=== PATIENT | female | born 1985 | race Caucasian/White ===

== ENCOUNTER 2022-07-18 07:59 | Inpatient (IN) | payer OTHER, SELFPAY ==
--- NOTE | ~2022-07-18 | CT_ITS ---
EXAMINATION: CT abdomen pelvis w con DATE: 07/18/2022 10:26 INDICATION: Epigastric abdominal pain. TECHNIQUE: Computed tomography (CT) of the abdomen and pelvis was performed with 100 mL Omnipaque 350 intravenous contrast. Automated exposure control and iterative reconstruction technique were employe d. The dose-length product was 1117.11 mGy-cm. COMPARISON: None. FINDINGS: The visualized portions of the lung bases demonstrate minimal atelectasis. No pleural effus ion. The heart size is normal. No pericardial effusion. There is diffuse hepatic steatosis. There are changes of cholecystectomy. The spleen is normal. There is fat stranding and fluid around the pancre as, consistent with acute interstitial pancreatitis. The pancreas enhances throughout. The adrenal gl ands and kidneys are normal. There are no dilated loops of bowel. The appendix is normal. There are n o pathologically enlarged lymph nodes. There is physiologic fluid in the pelvis. There is severe lowe r lumbar spondylosis. IMPRESSION: 1. Acute interstitial pancreatitis. 2. Diffuse hepatic steatosis. Reviewed, dictated and finalized at location [facility].
--- NOTE | ~2022-07-18 | MR_ITS ---
MRI of the abdomen: Clinical indication: Pancreatitis. Technique: Coronal SSFSE ARC, WATER:coronal LAVA-FLEX, Coronal 2D FIESTA FatSat, Axial SSFSE BH ARC, Axial 3D DualEcho BH, Axial SSFSE-IR, Axial DWI b=500, Axial 2D FIESTA FatSat, pre and dynamic postco ntrast Axial LAVA ARC, postcontrast Coronal In and Opposed phase LAVA FLEX. Following intravenous adm inistration of 19 cc MultiHance gadolinium, T1-weighted fat-sat imaging was performed in the axial an d coronal planes. Findings: Gallbladder is absent. The common bile duct is normal in course and caliber. No filling def ects are seen within the CBD. No evidence of intrahepatic biliary ductal dilatation. The pancreatic d uct is normal in size. There is diffuse signal drop off in the liver on out of phase images relative to in phase images, con sistent with diffuse fatty infiltration. No focal hepatic mass or intrahepatic biliary dilatation. Th ere is probable minimal edematous change of the pancreas, minimal peripancreatic fluid. Spleen, adren als, kidneys appear normal. The aorta and the paraaortic regions appear normal. No abnormal postcontrast enhancement identified. Impression: Minimal acute pancreatitis. The extent of peripancreatic inflammatory change/fluid is significantly d ecreased since prior CT scan dated 07/18/2022. Diffuse fatty infiltration of the liver. Status post cholecystectomy. No evidence for choledocholithiasis or biliary dilatation. Reviewed, dictated and finalized at [facility]. Impression: Minimal acute pancreatitis. The extent of peripancreatic inflammatory change/fl uid is significantly decreased since prior CT scan dated 07/18/2022. Diffuse fatty infiltration of the liver. Status post cholecystectomy. No evidence for choledocholithiasis or biliary dilatation.
[2022-07-18 08:01] VITALS: BP 156/87; PULSE 87; RESP 18; TEMP 36.3; O2SAT 100
[2022-07-18] MEDS: SODIUM CHLORIDE 0.9% IV 1,000 ML 999 ML IV CONT (08:34)
[2022-07-18] MEDS: ONDANSETRON INJ 4 MG/2 ML VIAL IV PUSH (08:36)
[2022-07-18] MEDS: PANTOPRAZOLE SODIUM IV 40 MG VIAL IV PUSH (08:36)
[2022-07-18] MEDS: MORPHINE SULFATE (*CRX) 4 MG/ML INJ 6 MG IV PUSH (08:39)
--- NOTE | 2022-07-18 08:45 | ED.ABDPAIN ---
HPI - Abdominal Pain General Chief Complaint: Abdominal Pain Stated Complaint: ABD PAIN Time Seen by Provider: 07/18/22 08:09 Source: patient and RN notes reviewed Mode of arrival: ambulatory Limitations: no limitations History of Present Illness HPI narrative: This is a 36 year old female who presents for evaluation of of epigastric abdominal pain. she reports she had pain yesterday but it resolved. Her pain returned this morning at 2 am, and it has been constant. She reports her pain is severe. She has not taken any medication for her pain. She denies nausea, vomiting, diarrhea. She denies history of similar pain. Her gallbladder has already been removed. She rates pain 11/28. Related Data Home Medications Medication Instructions Recorded Confirmed pantoprazole 40 mg tablet,delayed 40 mg PO DAILY 07/18/22 07/18/22 release Allergies Allergy/AdvReac Type Severity Reaction Status Date / Time meperidine [From Demerol] Allergy Rash Verified 07/18/22 08:35 diphenhydramine AdvReac restless Verified 07/18/22 11:00 legs Review of Systems Constitutional: Constitutional: Denies weakness Cardiovascular: Cardiovascular: Denies syncope, Denies rapid heart rate, Denies irregular heart rhythm, Denies leg edema and Denies dyspnea Respiratory: Respiratory: Denies chest congestion, Denies hemoptysis, Denies excessive phlegm production and Denies dyspnea Gastrointestinal: Gastrointestinal: Reports abdominal pain, Denies hematochezia, Denies diarrhea and Denies vomiting Genitourinary: Genitourinary: Denies hematuria and Denies dysuria Musculoskeletal: Musculoskeletal: Denies joint swelling, Denies loss of height and Denies muscle weakness Neurologic: Denies syncope, Denies focal weakness and Denies weakness [facility] Past Medical History Medical History (Updated 07/19/22 @ 14:41 by Crissy Linares MD) Gastroesophageal reflux disease Hepatic steatosis Noted on CT on 07/18/2022. Surgical History Surgical History (Updated 07/18/22 @ 13:48 by Renata Rucker PA-C) History of 3 sections History of cholecystectomy Family History Family History (Updated 07/18/22 @ 20:22 by Renata Rucker PA-C) Father Gallstone pancreatitis Social History Social History (Updated 07/18/22 @ 13:47 by Renata G. Gerling, PA-C) Social History: Surrogate medical decision maker: Eliceo Antony, spouse. Code status: Full code. Smoking status: Current every day smoker Alcohol use details: rarely Substance use: former Substance use type: marijuana, crack/cocaine and other Other substance usage details: Fentanyl. Last use: 2019 Lack of Transportation: No Lack of Food: Never True Current Housing: I Have Housing Concerned About Future Housing: No Difficulty Paying Gas/Electric Bills: No Difficulty Paying for Meds: No Currently Unemployed: No Education: High School Diploma/GED Difficulty w/ Childcare or Family Care: No Additional living arrangements comments: Lives in [place]. Spiritual care concerns: No Exam Const: General: alert; No diaphoretic or ill appearing Nutritional Appearance: obese Orientation/consciousness: patient oriented x3 Other: appears to be in pain HENMT: Head: normal to inspection Eyes: EOM: EOMs intact bilaterally Chest: Chest palpation & inspection: normal inspection of the chest Resp: Effort & Inspection: normal respiratory effort Auscultation: clear to auscultation bilaterally Cardio: Rate: regular rate Rhythm: regular rhythm Heart sounds: no murmurs GI: GI Palp: Yes Soft to palpation, Yes Tenderness to palpation present (GI) (LUQ, epigastric), No Guarding due to palpation present (GI) and No Rigid due to palpation Auscultation: normal bowel sounds Back/Spine/Pelvis: Back: no CVA tenderness Skin: General skin exam: normal color Rashes: no rashes Wounds: no wounds Neuro: General: patient oriented x3, moves all extremities and CN's
[2022-07-18 09:21] LABS: Basophils Absolute Auto 0.1 K/mm3 (0.0-0.1); Basophils Percent Auto 0.5 % (0.2-1.2); Eosinophils Percent Auto 0.2 % (0-4.4); Hemoglobin 14.7 g/dL (12.0-15.0); Immature Granulocyte Absolute 0.03 K/mm3 (0.00-0.031); Immature Granulocyte Percent A 0.3 % (0-0.5); Lymphocytes Absolute Auto 1.07 K/mm3 (0.9-3.2); Lymphocytes Percent Auto 10.2 % (18.3-44.2); Mean Corpuscular Hemoglobin 31.5 pg (26-34); Mean Corpuscular Volume 90.1 fl (80-100); Mean Platelet Volume 10.6 fl (7.4-10.4); Monocytes Absolute Auto 0.5 K/mm3 (0.1-0.6); Monocytes Percent Auto 4.3 % (2.6-8.5); Neutrophils Absolute Auto 8.9 K/mm3 (1.3-6.7); Neutrophils Percent Auto 84.5 % (45.5-73.1); Platelet Count Result 194 k/mm3 (150-375); Red Blood Count 4.66 M/mm3 (4.2-5.4); Red Cell Distribution Width 12.4 % (11.5-14.5); White Blood Count 10.5 K/mm3 (4.5-10.0)
[2022-07-18 09:28] LABS: Alanine Aminotransferase 93 U/L (6-35); Albumin Level 4.7 g/dL (3.5-5.1); Alkaline Phosphatase 57 U/L (38-126); Anion Gap 9 mmol/L (8-16); Aspartate Amino Transferase 62 U/L (14-36); Bilirubin,Total 0.9 mg/dL (0.2-1.3); Blood Urea Nitrogen 16 mg/dL (7-17); Calcium 8.8 mg/dL (8.4-10.2); Carbon Dioxide 27 mmol/L (22-30); Chloride 98 mmol/L (98-107); Estimated CRCL calculation 144 ml/min; Estimated Glomerular Filt Rate > 60; Glucose 204 mg/dL (65-110); Sodium 134 mmol/L (137-145)
[2022-07-18 10:11] LABS: Lipase 4883 U/L (23-300)
[2022-07-18 10:20] LABS: Appearance Urine Cloudy (Clear); Bacteria Urine 4+ /hpf; Bilirubin Urine Negative (Negative); Blood Urine Negative (Negative); Color Urine Dark Yellow (Yellow); Glucose Urine UA 3+ mg/dL (Negative); Ketones Urine 1+ mg/dL (Negative); Leukocyte Esterase Ur 1+ LEU/UL (Negative); Need Manual Microscopic Reviewed; Nitrate Urine Negative (Negative); Non Pathogenic Casts 0-2; Protein Urine 1+ mg/dL (Negative); RBC Urine 0-2 /hpf (0-2); Specific Grav Ur 1.032 (1.001-1.035); Squamous Epithelial Cell Urine Many /hpf (Few); pH Urine 6.5 (5.0-9.0)
[2022-07-18 10:22] LABS: Add Urine Microscopic? YES
[2022-07-18] MEDS: MORPHINE SULFATE (*CRX) 4 MG/ML INJ IV PUSH ×2 (10:59→13:00)
[2022-07-18 11:30] VITALS: BP 153/96
--- NOTE | 2022-07-18 11:53 | PC.NURSE ---
pt keeps taking off BP cuff and O2 probe,
[2022-07-18 12:18] VITALS: BP 167/98; PULSE 82; RESP 20; TEMP 36.8; O2SAT 100; BMI 32.8
[2022-07-18 12:29] VITALS: BMI 32.8
--- NOTE | 2022-07-18 12:32 | PC.NURSE ---
This patient, Britni Antony, was admitted to Medical Room 348-01. Patient/family oriented to hospital policies and general routines including ID bracelet, bed and alarms, visiting hours, pain management, procedures, bathroom and other care routines, personal items, smoking policy, room service/diet, and visiting hours. Information on how to activate the Rapid Response Team has been discussed. Patient/Family are encouraged to report perceived risks to care and to ask questions if they do not understand what they are told or what they should do.
[2022-07-18] MEDS: SODIUM CHLORIDE 0.9% IV 1,000 ML 125 ML IV CONT (12:41)
[2022-07-18 12:52] LABS: Triglycerides 180 mg/dL (<150)
[2022-07-18 13:01] LABS: Hemoglobin A1C 6.2 % (<5.7)
--- NOTE | 2022-07-18 13:45 | PM.IMHP ---
H&P: HPI History of Present Illness Date/Time: 07/18/22 13:45 Chief Complaint: Upper abdominal pain, nausea, and vomiting. Narrative: This is a pleasant 36-year-old female with history of GERD who presented to the emergency department via private vehicle from home for evaluation of upper abdominal pain, nausea, and vomiting. The patient provides the following history. She woke from sleep yesterday morning with some vague discomfort throughout the upper abdomen which seemed to improve throughout the day. This morning she was wakened from sleep at 02:00 from severe pain in the left upper quadrant which she has a difficult time describing. It does radiate somewhat through the back and is associated with nausea and vomiting (nonbloody and nonbilious). Pain seems to be worse with food; she has not noticed any alleviating factors. She denies fever, chills, sweats, chest pain, shortness a breath, diarrhea, and dysuria. The pain is not similar to her GERD symptoms. She has no history of peptic ulcers or pancreatitis. She had her gallbladder removed several years ago. She has never had pain like this before. CT of the abdomen and pelvis showed acute interstitial pancreatitis and she is being admitted in this setting for supportive care and further evaluation. She very rarely drinks alcohol, has no known history of hypertriglyceridemia, and she has not been on any new medications recently. She has been on pantoprazole for years. Review of Systems Review of Systems: 12 systems were reviewed and are negative except for as per HPI. [facility] Past Medical History Medical History (Updated 07/18/22 @ 20:24 by Renata Rucker PA-C) Gastroesophageal reflux disease Hepatic steatosis Noted on CT on 07/18/2022. Surgical History Surgical History (Updated 07/18/22 @ 13:48 by Renata Rucker PA-C) History of 3 sections History of cholecystectomy Family History Family History (Updated 07/18/22 @ 20:22 by Renata Rucker PA-C) Father Gallstone pancreatitis Social History Social History (Updated 07/18/22 @ 13:47 by Renata Rucker PA-C) Social History: Surrogate medical decision maker: Eliceo Antony, spouse. Code status: Full code. Smoking status: Current every day smoker Alcohol use details: rarely Substance use: former Substance use type: marijuana, crack/cocaine and other Other substance usage details: Fentanyl. Last use: 2019 Lack of Transportation: No Lack of Food: Never True Current Housing: I Have Housing Concerned About Future Housing: No Difficulty Paying Gas/Electric Bills: No Difficulty Paying for Meds: No Currently Unemployed: No Education: High School Diploma/GED Difficulty w/ Childcare or Family Care: No Additional living arrangements comments: Lives in [place]. Spiritual care concerns: No Meds Home Medications and Allergies Home Medications Medication Instructions Recorded Confirmed Type pantoprazole 40 mg tablet,delayed 40 mg PO DAILY 07/18/22 07/18/22 History release Allergies Allergy/AdvReac Type Severity Reaction Status Date / Time meperidine [From Demerol] Allergy Rash Verified 07/18/22 08:35 diphenhydramine AdvReac restless Verified 07/18/22 11:00 legs Vital Signs Vital Signs - 24 hr 07/18/22 08:01 07/18/22 11:30 07/18/22 12:18 Temperature 97.4 F L 98.2 F Pulse Rate 87 82 Respiratory Rate 18 20 Blood Pressure 156/87 H 153/96 H 167/98 H Pulse Oximetry 100 100 Oxygen Delivery Room Air Exam Narrative: General: Nontoxic-appearing female in a moderate amount of pain. Weight: 92.4 kg. BMI: 32.9. HEENT: PERRL, EOMI. Sclera anicteric. Tacky mucous membranes. Edentulous. Neck: Supple. Respiratory: Lungs are clear to auscultation bilaterally. Cardiovascular: Regular rate and rhythm with S1-S2. Gastrointestinal: Abdomen is soft, obese, slightly distended with hypoactive bowel sounds. She is tender to palpation
[2022-07-18 13:55] VITALS: BP 168/94; PULSE 83; RESP 14; TEMP 36.9; O2SAT 100
[2022-07-18] MEDS: MORPHINE SULFATE (*CRX) 4 MG/ML INJ 2 MG IV PUSH ×2 (15:15→17:16)
[2022-07-18 18:08] LABS: Glucose Point of Care 145 mg/dl (65-105)
[2022-07-18] MEDS: HYDROmorphone HCL INJ (*CRX) 1 MG/ML SYR IV PUSH ×2 (20:32→23:29)
[2022-07-18 21:41] VITALS: BP 141/91; PULSE 102; RESP 18; TEMP 37; O2SAT 99
[2022-07-18] MEDS: SODIUM CHLORIDE 0.9% IV 1,000 ML 150 ML IV CONT (23:08)
[2022-07-18 23:56] LABS: Glucose Point of Care 115 mg/dl (65-105)
[2022-07-19] MEDS: HYDROmorphone HCL INJ (*CRX) 1 MG/ML SYR IV PUSH ×6 (05:23→23:58)
[2022-07-19] MEDS: SODIUM CHLORIDE 0.9% IV 1,000 ML 150 ML IV CONT ×2 (05:24→17:36)
[2022-07-19 05:48] LABS: Basophils Percent Auto 0.2 % (0.2-1.2); Eosinophils Absolute Auto 0.1 K/mm3 (0-0.3); Eosinophils Percent Auto 1.4 % (0-4.4); Hematocrit 38.9 % (37.0-47.0); Hemoglobin 13.3 g/dL (12.0-15.0); Immature Granulocyte Absolute 0.02 K/mm3 (0.00-0.031); Immature Granulocyte Percent A 0.2 % (0-0.5); Lymphocytes Percent Auto 19.3 % (18.3-44.2); Mean Corpuscular HGB Conc 34.2 g/dl (32-36); Mean Corpuscular Hemoglobin 31.4 pg (26-34); Mean Platelet Volume 10.8 fl (7.4-10.4); Monocytes Absolute Auto 0.8 K/mm3 (0.1-0.6); Monocytes Percent Auto 9.4 % (2.6-8.5); Neutrophils Absolute Auto 5.8 K/mm3 (1.3-6.7); Neutrophils Percent Auto 69.5 % (45.5-73.1); Platelet Count Result 171 k/mm3 (150-375); Red Blood Count 4.23 M/mm3 (4.2-5.4); Red Cell Distribution Width 12.3 % (11.5-14.5); White Blood Count 8.3 K/mm3 (4.5-10.0)
[2022-07-19 05:59] LABS: Alanine Aminotransferase 63 U/L (6-35); Albumin Level 3.9 g/dL (3.5-5.1); Alkaline Phosphatase 43 U/L (38-126); Anion Gap 5 mmol/L (8-16); Aspartate Amino Transferase 37 U/L (14-36); Bilirubin,Total 0.8 mg/dL (0.2-1.3); Blood Urea Nitrogen 9 mg/dL (7-17); Calcium 7.7 mg/dL (8.4-10.2); Carbon Dioxide 29 mmol/L (22-30); Chloride 102 mmol/L (98-107); Estimated CRCL calculation 124 ml/min; Estimated Glomerular Filt Rate > 60; Glucose 122 mg/dL (65-110); Magnesium 2.3 mg/dL (1.6-2.3); Sodium 136 mmol/L (137-145)
[2022-07-19 06:07] VITALS: BP 125/71; PULSE 95; RESP 18; TEMP 37.1; O2SAT 98
[2022-07-19 06:14] LABS: Glucose Point of Care 116 mg/dl (65-105)
[2022-07-19 07:12] LABS: Lipase 3755 U/L (23-300)
[2022-07-19] MEDS: ONDANSETRON INJ 4 MG/2 ML VIAL IV PUSH (09:29)
[2022-07-19] MEDS: ENOXAPARIN 40 MG/0.4 ML SYRINGE SUB-Q (09:30)
[2022-07-19] MEDS: PANTOPRAZOLE SODIUM IV 40 MG VIAL IV PUSH (09:30)
[2022-07-19 11:49] LABS: Glucose Point of Care 86 mg/dl (65-105)
[2022-07-19 13:25] VITALS: BP 132/69; PULSE 98; RESP 16; TEMP 37.2; O2SAT 97
--- NOTE | 2022-07-19 17:00 | WPDPN ---
Progress Note: A&P Assessment and Plan (1) Acute pancreatitis: Code(s): K85.90 - Acute pancreatitis without necrosis or infection, unspecified Status: Acute Assessment and Plan: Precipitating etiology unclear. Triglycerides are slightly elevated but not significantly so. She very rarely consumes alcohol. Father has a history of pancreatitis so that was attributed to gallstones. She is on pantoprazole which can rarely cause pancreatitis but she has been on that for many years. No ductal dilatation noted on CT. Continue aggressive IV fluid rehydration and bowel rest. Antiemetics and analgesics available as needed. Repeat lipase in a.m. 07/19/2022 interval history: Patient with a acute abdominal pain and presented with [place] 4883 is trended down [address] scan showed acute interstitial pancreatitis, patient denies any history of alcohol abuse however he does have family history pancreatitis is her father was diagnosed, will keep the patient NPO, continue IV hydration and pain management, will consult GI for further recommended, will continue to monitor. (2) Elevated LFTs: Code(s): R79.89 - Other specified abnormal findings of blood chemistry Status: Acute Assessment and Plan: Hepatocellular pattern with mildly elevated AST and ALT; likely due to diffuse hepatic steatosis noted on imaging. (3) Elevated blood pressure reading: Code(s): R03.0 - Elevated blood-pressure reading, without diagnosis of hypertension Status: Acute Assessment and Plan: Blood pressure is likely elevated due to pain. Continue to monitor and initiate antihypertensives depending on trends. (4) Hyperglycemia: Code(s): R73.9 - Hyperglycemia, unspecified Status: Acute Assessment and Plan: Check fasting glucose and hemoglobin A1c. (5) Gastroesophageal reflux disease: Code(s): K21.9 - Gastro-esophageal reflux disease without esophagitis Status: Acute Assessment and Plan: Pantoprazole 40 mg IV daily while NPO. (6) Abnormal urinalysis: Code(s): R82.90 - Unspecified abnormal findings in urine Status: Acute Assessment and Plan: Specimen looks contaminated and patient denies signs and symptoms of UTI. No indication for antibiotics. Plan Medical decision making narrative ? History obtained from: Patient. ? History from independent sources: n/a ? External chart review: n/a ? New problems addressed: Acute pancreatitis. ? Chronic illnesses addressed: GERD. ? Independent interpretation of studies: Labs, imaging, and all reports were personally reviewed ? Diagnostic tests considered but not ordered: None. ? Shared decision making: Findings were reviewed and discussed with the patient, including plans for further workup and treatment options. Questions solicited and answered to satisfaction. Patient agrees with current plan of care. ? Time spent on encounter: 75 minutes. Subjective Date/time seen: 07/19/22 17:00 Interval history: Upper abdominal pain, nausea, and vomiting. HPI-Narrative: This is a pleasant 36-year-old female with history of GERD who presented to the emergency department via private vehicle from home for evaluation of upper abdominal pain, nausea, and vomiting. The patient provides the following history. She woke from sleep yesterday morning with some vague discomfort throughout the upper abdomen which seemed to improve throughout the day. This morning she was wakened from sleep at 02:00 from severe pain in the left upper quadrant which she has a difficult time describing. It does radiate somewhat through the back and is associated with nausea and vomiting (nonbloody and nonbilious). Pain seems to be worse with food; she has not noticed any alleviating factors. She denies fever, chills, sweats, chest pain, shortness a breath, diarrhea, and dysuria. The pain is not similar to her GERD symptoms. She has no history of pe
[2022-07-19 17:21] LABS: Glucose Point of Care 97 mg/dl (65-105)
[2022-07-19 20:40] VITALS: TEMP 37.8
[2022-07-19] MEDS: ACETAMINOPHEN 325 MG TABLET 650 MG PO (20:40)
[2022-07-19 20:47] VITALS: BP 138/67; PULSE 101; RESP 18; TEMP 37.8; O2SAT 99
[2022-07-19 23:35] LABS: Glucose Point of Care 110 mg/dl (65-105)
[2022-07-20 00:01] VITALS: TEMP 36.9
[2022-07-20] MEDS: HYDROmorphone HCL INJ (*CRX) 1 MG/ML SYR IV PUSH ×2 (05:25→11:05)
[2022-07-20 05:30] LABS: Glucose Point of Care 112 mg/dl (65-105)
[2022-07-20 05:55] VITALS: BP 103/48; PULSE 92; RESP 18; TEMP 36.4; O2SAT 99
[2022-07-20 06:10] LABS: Hematocrit 35.8 % (37.0-47.0); Hemoglobin 12.1 g/dL (12.0-15.0); Immature Platelet Fraction Pct 5.2 % (0.9-11.2); Mean Corpuscular HGB Conc 33.8 g/dl (32-36); Mean Corpuscular Hemoglobin 32.2 pg (26-34); Mean Corpuscular Volume 95.2 fl (80-100); Mean Platelet Volume 10.4 fl (7.4-10.4); Platelet Count Result 137 k/mm3 (150-375); Red Blood Count 3.76 M/mm3 (4.2-5.4); Red Cell Distribution Width 12.3 % (11.5-14.5); White Blood Count 5.8 K/mm3 (4.5-10.0)
[2022-07-20 06:24] LABS: Alanine Aminotransferase 52 U/L (6-35); Albumin Level 3.6 g/dL (3.5-5.1); Alkaline Phosphatase 45 U/L (38-126); Anion Gap 6 mmol/L (8-16); Aspartate Amino Transferase 39 U/L (14-36); Bilirubin,Total 0.9 mg/dL (0.2-1.3); Blood Urea Nitrogen 7 mg/dL (7-17); Calcium 7.4 mg/dL (8.4-10.2); Carbon Dioxide 26 mmol/L (22-30); Chloride 105 mmol/L (98-107); Estimated CRCL calculation 148 ml/min; Estimated Glomerular Filt Rate > 60; Glucose 91 mg/dL (65-110); Lipase 1294 U/L (23-300); Magnesium 2.4 mg/dL (1.6-2.3); Potassium 3.8 mmol/L (3.4-5.0); Sodium 137 mmol/L (137-145)
--- NOTE | 2022-07-20 07:18 | WPDGICN ---
Assessment and Plan Assessment and plan (1) Acute pancreatitis: Code(s): K85.90 - Acute pancreatitis without necrosis or infection, unspecified Status: Acute Assessment and Plan: her initial lipase was 40 100. It is now down to 1294 MRCP was done this morning and shows no choledocholithiasis, and shows marked improvement in pancreatitis compared to CT scan 2 days ago. I told the patient she may have had some sludge in her bile duct. Her pancreatitis is not due to alcohol. (2) Elevated LFTs: Code(s): R79.89 - Other specified abnormal findings of blood chemistry Status: Acute Assessment and Plan: LFTs have been progressively dropping. And are now nearly normal. (3) Gastroesophageal reflux disease: Code(s): K21.9 - Gastro-esophageal reflux disease without esophagitis Status: Acute Assessment and Plan: She began taking pantoprazole couple months ago and has help with her heartburn. Plan I think we can advance her diet. She is going to try clear liquids now and I told her that she will be on a low-fat diet for the next 4 weeks in all full so abstain from alcohol completely for 4 weeks. I would like her to go home at least initially, for a week or 2 on Creon tablets. GI Consult Note Consult date/time: 07/20/22 07:18 HPI: Britni Antony is a 36 year old female Who presented to the hospital with acute abdominal pain. She had had some vague pain on Sunday which resolved in later in the day it became much more severe. He has been persistent since then. She presented emergency room 2 nights ago. The pain is still there primarily in left upper quadrant but improving each day. She was found have acute pancreatitis with a lipase greater than 3700. She had a cholecystectomy many years ago. She has never had pancreatitis to her knowledge. She does note however that her father had pancreatitis which was due to a gallstone in his bile duct. She drinks alcohol on occasion but very rarely and has had none recently. She has not started any new medications except pantoprazole which she started about 3 months ago. She is taking that for heartburn it does seem to be helping. She has no other gastrointestinal problems such as dysphagia, loss of appetite, change in bowel habits or blood her stools. Review of Systems Review of Systems: All systems reviewed & are unremarkable except as noted in HPI and below PMFSH Past Medical History Medical History Gastroesophageal reflux disease Hepatic steatosis Noted on CT on 07/18/2022. Surgical History Surgical History History of 3 sections History of cholecystectomy Family History Family History Father Gallstone pancreatitis Social History Social History Social History: Surrogate medical decision maker: Eliceo Antony, spouse. Code status: Full code. Smoking status: Current every day smoker Alcohol use details: rarely Substance use: former Substance use type: marijuana, crack/cocaine and other Other substance usage details: Fentanyl. Last use: 2019 Lack of Transportation: No Lack of Food: Never True Current Housing: I Have Housing Concerned About Future Housing: No Difficulty Paying Gas/Electric Bills: No Difficulty Paying for Meds: No Currently Unemployed: No Education: High School Diploma/GED Difficulty w/ Childcare or Family Care: No Additional living arrangements comments: Lives in [place]. Spiritual care concerns: No Meds Home Medications and Allergies Home Medications Medication Instructions Recorded Confirmed Type pantoprazole 40 mg tablet,delayed 40 mg PO DAILY 07/18/22 07/18/22 History release Allergies Allergy/AdvReac Type Severity Reactio
[2022-07-20 09:00] VITALS: O2SAT 98
[2022-07-20] MEDS: SODIUM CHLORIDE 0.9% IV 1,000 ML 150 ML IV CONT ×4 (09:22→22:15)
[2022-07-20] MEDS: PANTOPRAZOLE SODIUM IV 40 MG VIAL IV PUSH (09:23)
[2022-07-20] MEDS: ENOXAPARIN 40 MG/0.4 ML SYRINGE SUB-Q (09:24)
--- NOTE | 2022-07-20 10:02 | PM.IMPN ---
Progress Note: A&P Assessment and Plan (1) Acute pancreatitis: Code(s): K85.90 - Acute pancreatitis without necrosis or infection, unspecified Status: Acute Assessment and Plan: Precipitating etiology unclear. Triglycerides are slightly elevated but not significantly so. She very rarely consumes alcohol. Father has a history of pancreatitis so that was attributed to gallstones. She is on pantoprazole which can rarely cause pancreatitis but she has been on that for many years. No ductal dilatation noted on CT. Continue aggressive IV fluid rehydration and bowel rest. Antiemetics and analgesics available as needed. Repeat lipase in a.m. 07/19/2022 interval history: Patient with a acute abdominal pain and presented with elevated lipase of 4883 is trended down [address] scan showed acute interstitial pancreatitis, patient denies any history of alcohol abuse however he does have family history pancreatitis is her father was diagnosed, will keep the patient NPO, continue IV hydration and pain management, will consult GI for further recommended, will continue to monitor. 07/20/2022: Presented with acute pancreatitis evidenced with elevated lipase epigastric pain and CT evidence of acute interstitial pancreatitis. No history of alcohol abuse. MRCP negative for choledocholithiasis she is status post cholecystectomy. LFTs mildly elevated normal bilirubin. IV hydration bowel rest and pain management started. Repeat lipase improving will start clear liquid. GI has been consulted. Hepatic steatosis on imaging no medication in the past. Family history of pancreatitis. This is her only episode. (2) Elevated LFTs: Code(s): R79.89 - Other specified abnormal findings of blood chemistry Status: Acute Assessment and Plan: Hepatocellular pattern with mildly elevated AST and ALT; likely due to diffuse hepatic steatosis noted on imaging. (3) Elevated blood pressure reading: Code(s): R03.0 - Elevated blood-pressure reading, without diagnosis of hypertension Status: Acute Assessment and Plan: Blood pressure is likely elevated due to pain. Continue to monitor and initiate antihypertensives depending on trends. (4) Hyperglycemia: Code(s): R73.9 - Hyperglycemia, unspecified Status: Acute Assessment and Plan: Check fasting glucose and hemoglobin A1c. (5) Gastroesophageal reflux disease: Code(s): K21.9 - Gastro-esophageal reflux disease without esophagitis Status: Acute Assessment and Plan: Pantoprazole 40 mg IV daily while NPO. (6) Abnormal urinalysis: Code(s): R82.90 - Unspecified abnormal findings in urine Status: Acute Assessment and Plan: Specimen looks contaminated and patient denies signs and symptoms of UTI. No indication for antibiotics. Subjective Date/time seen: 07/20/22 10:02 Interval history: Upper abdominal pain, nausea, and vomiting. HPI-Narrative: This is a pleasant 36-year-old female with history of GERD who presented to the emergency department via private vehicle from home for evaluation of upper abdominal pain, nausea, and vomiting. The patient provides the following history. She woke from sleep yesterday morning with some vague discomfort throughout the upper abdomen which seemed to improve throughout the day. This morning she was wakened from sleep at 02:00 from severe pain in the left upper quadrant which she has a difficult time describing. It does radiate somewhat through the back and is associated with nausea and vomiting (nonbloody and nonbilious). Pain seems to be worse with food; she has not noticed any alleviating factors. She denies fever, chills, sweats, chest pain, shortness a breath, diarrhea, and dysuria. The pain is not similar to her GERD symptoms. She has no history of peptic ulcers or pancreatitis. She had her gallbladder removed several years ago. She has never had pain like this befor
[2022-07-20 12:11] LABS: Glucose Point of Care 135 mg/dl (65-105)
[2022-07-20 14:00] VITALS: BP 148/80; PULSE 70; RESP 16; TEMP 36.7; O2SAT 98
[2022-07-20] MEDS: LIPASE/AMYLASE/PROTEASE 12,000 UNITS CAP 2 CAP PO (16:39)
[2022-07-20] MEDS: HYDROcodone/acetaminophen (*CRX) 5-325 MG TABLET 1 TAB PO ×2 (16:39→22:13)
[2022-07-20 17:06] LABS: Glucose Point of Care 102 mg/dl (65-105)
[2022-07-20 22:00] VITALS: BP 139/71; PULSE 96; RESP 16; TEMP 37.1; O2SAT 100
[2022-07-21] MEDS: SODIUM CHLORIDE 0.9% IV 1,000 ML 150 ML IV CONT ×4 (04:45→23:25)
[2022-07-21] MEDS: HYDROcodone/acetaminophen (*CRX) 5-325 MG TABLET 1 TAB PO ×4 (04:47→23:24)
[2022-07-21 05:36] VITALS: BP 109/56; PULSE 86; RESP 16; TEMP 36.7; O2SAT 96
[2022-07-21 05:54] LABS: Red Blood Count 3.11 M/mm3 (4.2-5.4); White Blood Count 4.4 K/mm3 (4.5-10.0)
[2022-07-21 05:55] LABS: Hematocrit 29.4 % (37.0-47.0); Immature Platelet Fraction Pct 4.4 % (0.9-11.2); Mean Corpuscular Hemoglobin 32.2 pg (26-34); Mean Corpuscular Volume 94.5 fl (80-100); Mean Platelet Volume 10.4 fl (7.4-10.4); Platelet Count Result 131 k/mm3 (150-375); Red Cell Distribution Width 12.3 % (11.5-14.5)
[2022-07-21 06:10] LABS: Alanine Aminotransferase 45 U/L (6-35); Alkaline Phosphatase 40 U/L (38-126); Anion Gap 2 mmol/L (8-16); Aspartate Amino Transferase 34 U/L (14-36); Bilirubin,Total 0.5 mg/dL (0.2-1.3); Blood Urea Nitrogen 5 mg/dL (7-17); Calcium 7.1 mg/dL (8.4-10.2); Carbon Dioxide 27 mmol/L (22-30); Chloride 110 mmol/L (98-107); Estimated CRCL calculation 147 ml/min; Estimated Glomerular Filt Rate > 60; Glucose 102 mg/dL (65-110); Lipase 796 U/L (23-300); Magnesium 2.2 mg/dL (1.6-2.3); Potassium 3.3 mmol/L (3.4-5.0); Sodium 139 mmol/L (137-145)
[2022-07-21] MEDS: POTASSIUM CHLORIDE 20 MEQ TABLET 40 MEQ PO (08:35)
[2022-07-21] MEDS: PANTOPRAZOLE SODIUM IV 40 MG VIAL IV PUSH (08:35)
[2022-07-21] MEDS: LIPASE/AMYLASE/PROTEASE 12,000 UNITS CAP 2 CAP PO ×3 (08:35→17:16)
[2022-07-21] MEDS: ENOXAPARIN 40 MG/0.4 ML SYRINGE SUB-Q (08:36)
[2022-07-21 09:52] VITALS: PULSE 88; O2SAT 97
--- NOTE | 2022-07-21 12:06 | PM.IMPN ---
Progress Note: A&P Assessment and Plan (1) Acute pancreatitis: Code(s): K85.90 - Acute pancreatitis without necrosis or infection, unspecified Status: Acute Assessment and Plan: Precipitating etiology unclear. Triglycerides are slightly elevated but not significantly so. She very rarely consumes alcohol. Father has a history of pancreatitis so that was attributed to gallstones. She is on pantoprazole which can rarely cause pancreatitis but she has been on that for many years. No ductal dilatation noted on CT. Continue aggressive IV fluid rehydration and bowel rest. Antiemetics and analgesics available as needed. Repeat lipase in a.m. 07/19/2022 interval history: Patient with a acute abdominal pain and presented with [place] lip[place] 4883 is trended down [address] scan showed acute interstitial pancreatitis, patient denies any history of alcohol abuse however he does have family history pancreatitis is her father was diagnosed, will keep the patient NPO, continue IV hydration and pain management, will consult GI for further recommended, will continue to monitor. 07/20/2022: Presented with acute pancreatitis evidenced with elevated lipase epigastric pain and CT evidence of acute interstitial pancreatitis. No history of alcohol abuse. MRCP negative for choledocholithiasis she is status post cholecystectomy. LFTs mildly elevated normal bilirubin. IV hydration bowel rest and pain management started. Repeat lipase improving will start clear liquid. GI has been consulted. Hepatic steatosis on imaging no medication in the past. Family history of pancreatitis. This is her only episode. 07/21/2022: Presented with acute pancreatitis evidence with elevated lipase epigastric pain and CT evidence of acute interstitial pancreatitis. No history of alcohol abuse. MRCP negative for choledocholithiasis. She is status post cholecystectomy. LFTs mildly elevated normal bilirubin. IV hydration bowel rest and pain management started. Repeat lipase improving. Started on diet and tolerating low-fat diet. GI has been consulted. Hepatics steatosis on imaging. No new medications recently. Family history of pancreatitis. This is on the episode. Continue IVFluids. Encourage oral pain medication if improving DC home tomorrow (2) Elevated LFTs: Code(s): R79.89 - Other specified abnormal findings of blood chemistry Status: Acute Assessment and Plan: Hepatocellular pattern with mildly elevated AST and ALT; likely due to diffuse hepatic steatosis noted on imaging. (3) Elevated blood pressure reading: Code(s): R03.0 - Elevated blood-pressure reading, without diagnosis of hypertension Status: Acute Assessment and Plan: Blood pressure is likely elevated due to pain. Continue to monitor and initiate antihypertensives depending on trends. (4) Hyperglycemia: Code(s): R73.9 - Hyperglycemia, unspecified Status: Acute Assessment and Plan: Check fasting glucose and hemoglobin A1c. (5) Gastroesophageal reflux disease: Code(s): K21.9 - Gastro-esophageal reflux disease without esophagitis Status: Acute Assessment and Plan: Pantoprazole 40 mg IV daily while NPO. (6) Abnormal urinalysis: Code(s): R82.90 - Unspecified abnormal findings in urine Status: Acute Assessment and Plan: Specimen looks contaminated and patient denies signs and symptoms of UTI. No indication for antibiotics. Subjective Date/time seen: 07/21/22 12:06 Interval history: Upper abdominal pain, nausea, and vomiting. HPI-Narrative: This is a pleasant 36-year-old female with history of GERD who presented to the emergency department via private vehicle from home for evaluation of upper abdominal pain, nausea, and vomiting. The patient provides the following history. She woke from sleep yesterday morning with some vague discomfort throughout the upper abdomen wh
[2022-07-21] MEDS: BISACODYL 5 MG TABLET EC PO (12:59)
[2022-07-21 14:00] VITALS: BP 121/62; PULSE 79; RESP 16; TEMP 36.9; O2SAT 100
[2022-07-21 20:44] VITALS: BP 153/88; PULSE 76; RESP 18; TEMP 36.8; O2SAT 100
[2022-07-22 05:09] VITALS: BP 108/50; PULSE 67; RESP 18; TEMP 36.9; O2SAT 98
[2022-07-22 05:50] LABS: Hemoglobin 10.8 g/dL (12.0-15.0); Immature Platelet Fraction Pct 9.8 % (0.9-11.2); Mean Corpuscular HGB Conc 32.7 g/dl (32-36); Mean Corpuscular Hemoglobin 31.7 pg (26-34); Mean Corpuscular Volume 96.8 fl (80-100); Mean Platelet Volume 11.2 fl (7.4-10.4); Platelet Count Result 121 k/mm3 (150-375); Red Blood Count 3.41 M/mm3 (4.2-5.4); Red Cell Distribution Width 12.2 % (11.5-14.5); White Blood Count 3.9 K/mm3 (4.5-10.0)
[2022-07-22 06:11] LABS: Alanine Aminotransferase 59 U/L (6-35); Albumin Level 3.6 g/dL (3.5-5.1); Alkaline Phosphatase 30 U/L (38-126); Anion Gap 6 mmol/L (8-16); Aspartate Amino Transferase 57 U/L (14-36); Bilirubin,Total 0.6 mg/dL (0.2-1.3); Blood Urea Nitrogen 2 mg/dL (7-17); Carbon Dioxide 25 mmol/L (22-30); Chloride 109 mmol/L (98-107); Estimated CRCL calculation 147 ml/min; Estimated Glomerular Filt Rate > 60; Glucose 91 mg/dL (65-110); Lipase 828 U/L (23-300); Magnesium 2.2 mg/dL (1.6-2.3); Sodium 140 mmol/L (137-145)
[2022-07-22] MEDS: SODIUM CHLORIDE 0.9% IV 1,000 ML 150 ML IV CONT (06:46)
[2022-07-22] MEDS: LIPASE/AMYLASE/PROTEASE 12,000 UNITS CAP 2 CAP PO (08:26)
[2022-07-22] MEDS: ENOXAPARIN 40 MG/0.4 ML SYRINGE SUB-Q (08:27)
[2022-07-22] MEDS: PANTOPRAZOLE SODIUM IV 40 MG VIAL IV PUSH (08:27)
--- NOTE | 2022-07-22 09:59 | WPDGIPROGNO ---
Progress Note: A&P Assessment and Plan (1) Acute pancreatitis: Code(s): K85.90 - Acute pancreatitis without necrosis or infection, unspecified Status: Acute Assessment and Plan: doing much better and tolerated diet low fat diet she can go home and follow-up with Dr Garcia as outpatient (2) Elevated LFTs: Code(s): R79.89 - Other specified abnormal findings of blood chemistry Status: Acute Assessment and Plan: monitor as outpatient probably from pancreatitis (3) Abdominal pain: Code(s): R10.9 - Unspecified abdominal pain Status: Acute Assessment and Plan: almost gone Subjective Date/time seen: 07/22/22 09:59 Interval history: overall much better, pain almost gone and tolerated diet Review of Systems Review of Systems: All systems reviewed & are unremarkable except as noted in HPI and below Exam Const: General: comfortable and no acute distress HENMT: Face/Nose/Sinus: Normal nares present Eyes: General: appearance normal, both eyes and all related structures Neck: Neck: no JVD Resp: Auscultation: clear to auscultation bilaterally Cardio: Rate: regular rate Rhythm: regular rhythm GI: Inspection: non-distended GI Palp: Yes Soft to palpation and No Guarding due to palpation present (GI) Auscultation: normal bowel sounds Skin: General skin exam: normal color Neuro: General: gait normal Speech: normal speech Extrem: General: normal to inspection Psych: Mental Status: mental status grossly normal Objective Data Vital Signs Vital Signs: Vital Signs - 24 hr 07/21/22 14:00 07/21/22 20:44 07/21/22 20:00 Temperature 98.4 F 98.2 F Pulse Rate 79 76 Respiratory Rate 16 18 Blood Pressure 121/62 153/88 H Pulse Oximetry 100 100 Oxygen Delivery Room Air 07/22/22 05:09 Temperature 98.4 F Pulse Rate 67 Respiratory Rate 18 Blood Pressure 108/50 L Pulse Oximetry 98 Oxygen Delivery Intake/Output Intake/Output: Intake & Output 07/19/22 07/20/22 07/21/22 07/22/22 23:59 23:59 23:59 23:59 Intake Total 1999 4600 5470 1240 Output Total 0 Balance 1999 4600 5470 1240 Meds/Results Medications: Active Medications Generic Name Dose Route Start Last Admin Trade Name Freq PRN Reason Stop Dose Admin Acetaminophen 650 mg 07/18/22 13:48 07/19/22 20:40 Acetaminophen 325 Mg Tablet PO 650 mg Q6H PRN Administration Mild Pain (1-3) or Fever Hydrocodone Bitart/Acetaminophen 1 tab 07/18/22 13:48 07/21/22 23:24 Hydrocodone/Acetaminophen (*Crx) 5-325 Mg Tablet PO 1 tab Q6H PRN Administration Pain Rated 4-6 Lipase/Protease/Amylase 2 cap 07/20/22 17:00 07/22/22 08:26 Lipase/Amylase/Protease 12,000 Units Cap PO 2 cap TIDWM NATHALIA Administration Bisacodyl 5 mg 07/21/22 11:39 07/21/22 12:59 Bisacodyl 5 Mg Tablet Ec PO 5 mg QAM PRN Administration Constipation Dextrose 12.5 gm 07/18/22 13:48 Dextrose 50% 25 Gm/50 Ml Syringe IV PUSH PRN PRN Hypoglycemia Protocol Enoxaparin Sodium 40 mg 07/19/22 09:00 07/22/22 08:27 Enoxaparin 40 Mg/0.4 Ml Syringe SUB-Q 40 mg DAILY NATHALIA Administration Glucagon 1 mg 07/18/22 13:48 Glucagon For Inj 1 Mg Vial IM PRN PRN Hypoglycemia Protocol Glucose 15 gm 07/18/22 13:48 Glucose Oral Gel 15 Gm Of Glucse In 37.5 Gm Tube PO PRN PRN Hypoglycemia Protocol Hydromorphone HCl 1 mg 07/18/22 20:12 07/20/22 11:05 Hydromorphone Hcl Inj (*Crx) 1 Mg/Ml Syr IV PUSH 1 mg Q3H PRN Administration Pain Rated 7-10 Sodium Chloride 1,000 mls @ 150 mls/hr 07/18/22 11:05 07/22/22 06:46 Normal Saline Iv IV CONT 150 mls/hr .Q6H40M NATHALIA Administration Dextrose 1,000 mls @ 100 mls/hr 07/18/22 13:48 Dextrose 5% 1,000 Ml IVPB PRN PRN Hypoglycemia Protocol Ondansetron HCl 4 mg 07/18/22 11:05 07/19/22 09:29 Ondansetron Inj 4 Mg/2 Ml Vial IV PUSH 4 mg
--- NOTE | 2022-07-22 12:29 | PM.DS ---
DS: Admitting Diagnosis Discharge Date 07/22/2022 Admitting Diagnosis Abdominal pain DS: Discharge Diagnosis Discharge Diagnosis (1) Acute pancreatitis: Code(s): K85.90 - Acute pancreatitis without necrosis or infection, unspecified Status: Acute (2) Elevated LFTs: Code(s): R79.89 - Other specified abnormal findings of blood chemistry Status: Acute (3) Elevated blood pressure reading: Code(s): R03.0 - Elevated blood-pressure reading, without diagnosis of hypertension Status: Acute (4) Hyperglycemia: Code(s): R73.9 - Hyperglycemia, unspecified Status: Acute (5) Gastroesophageal reflux disease: Code(s): K21.9 - Gastro-esophageal reflux disease without esophagitis Status: Acute (6) Abnormal urinalysis: Code(s): R82.90 - Unspecified abnormal findings in urine Status: Acute DS: Summary Hospital Course Hospital Course: Presented with acute pancreatitis evidence with? elevated lipase epigastric pain and CT evidence of acute interstitial pancreatitis.? No history of alcohol abuse.? MRCP negative for choledocholithiasis.? She is status post cholecystectomy.? LFTs mildly elevated normal bilirubin.? IV hydration bowel rest and pain management started.? Repeat lipase improving.? Started on diet and tolerating low-fat diet.? GI has been consulted.? Hepatics steatosis on imaging.? No new medications recently.? Family history of pancreatitis.? This is her only episode.? Treated with IV fluids and IV pain medication. Pain is improved. Tolerating diet and discharge home. Time Spent with Patient Time attestation: Total time spent providing and/or coordinating discharge services: 30 minutes Exam Narrative: Morbidly obese Patient is comfortable, NAD HEENT: eyes are clear and none icteric LUNGS: Normal respiratory effort ABD: Not distended mildly tender epigastric area normal active bowel sound Lower extremities: no edema SKIN: nonjaundiced Neuro: grossly intact. DS: Data Data Completed and Pending Labs on day of discharge: Labs from last 24 hours 07/22/22 05:32 WBC 3.9 L RBC 3.41 L Hgb 10.8 L Hct 33.0 L MCV 96.8 MCH 31.7 MCHC 32.7 RDW 12.2 Plt Count 121 L MPV 11.2 H % Immature Plt Fraction 9.8 Sodium 140 Potassium 4.0 Chloride 109 H Carbon Dioxide 25 Anion Gap 6 L BUN 2 L Creatinine 0.50 L Estim Creat Clear Calc 147 Estimated GFR > 60 Glucose 91 Calcium 8.0 L Magnesium 2.2 Total Bilirubin 0.6 AST 57 H ALT 59 H Alkaline Phosphatase 30 L Total Protein 6.0 L Albumin 3.6 Lipase 828 H Imaging Radiologist's impression: ITS Impressions Abdomen/Pelvis CT 07/18/22 10:29 IMPRESSION: 1. Acute interstitial pancreatitis. 2. Diffuse hepatic steatosis. MRCP 07/20/22 07:23 Impression: Minimal acute pancreatitis. The extent of peripancreatic inflammatory change/fluid is significantly decreased since prior CT scan dated 07/18/2022. Diffuse fatty infiltration of the liver. Status post cholecystectomy. No evidence for choledocholithiasis or biliary dilatation. Discharge Plan Discharge Attending physician on discharge: Jose Baker Consulting providers: Guanakito Garcia Discharging Clinician: Jose Baker Anticipated Discharge Date/Time: 07/22/22 12:26 Patient Disposition: Home, Self-Care Activity: as tolerated Diet: low fat Patient Instructions: Antibiotic Form, How to Stop Smoking (DC) Stand Alone Forms: General Discharge Information Follow-up/Referrals: Guanakito aGrcia MD [Physician] - 4 Weeks Tito Corrales DO [Primary Care Provider] - 1 Week Discharge Medications: New hydrocodone-acetaminophen 5-325 mg Tablet 1 tablet PO Q6H PRN (Reason: Pain Rated 4-6) Qty: 10 0RF Creon 12,000-38,000 -60,000 unit Capsule,Delayed Release(Dr/Ec) 2 cap PO TIDWM Qty: 90 0RF Continued pantoprazole 40 mg tablet,delayed releas
== END 2022-07-22 13:42 | disposition home or self-care (01) | DRG 282 ==
LOC: ANHED 08:14 → ANH3MED 11:53
PROVIDERS: Physician Assistant; Admitting Provider Family Medicine; Emergency Provider General Practice; PCP Internal Medicine; Visit Provider Internal Medicine
DX: K85.90 Acute pancreatitis without necrosis or infection, unspecified (principal); F17.200 Nicotine dependence, unspecified, uncomplicated; K21.9 Gastro-esophageal reflux disease without esophagitis; R03.0 Elevated blood-pressure reading, without diagnosis of hypertension; R73.9 Hyperglycemia, unspecified
CPT/HCPCS: 36415; 74177; 74183; 76376; 80053; 81001; 81025; 82948; 83036; 83690; 83735; 84478; 85025; 85027; 85055; 87086; 87088; 96372; 96374; 96375; 96376; 99285; A9270; A9577; C9113; G0378; G0379; J1170; J1650; J2270; J2405; J7030; Q9967